=== PATIENT | male | born 1950 | race Caucasian/White ===

== ENCOUNTER 2018-03-14 02:25 | Outpatient (CLI) | payer MEDICARE, MEDICAID, SELFPAY ==
[2018-03-14 11:37] LABS: Cholesterol 242 mg/dL (50-200); HDL Cholesterol 81 mg/dL (40-60); LDL CHOLESTEROL 144 mg/dL (<100); Triglyceride 58 mg/dL (30-150)
[2018-03-15 09:21] LABS: PSA, Screening 1.8 ng/ml (0-4.5)
== END 2018-03-14 02:45 ==
PROVIDERS: PCP Emergency Medicine; Visit Provider Emergency Medicine
DX: Z12.5 Encounter for screening for malignant neoplasm of prostate (principal); E78.5 Hyperlipidemia, unspecified
CPT/HCPCS: 36415; 80061; 83721; 84153

== ENCOUNTER 2018-03-30 12:06 | Emergency (ER) | payer MEDICARE, SELFPAY ==
[2018-03-30 12:08] VITALS: BP 135/73; PULSE 76; RESP 16; TEMP 36.2; O2SAT 96
--- NOTE | 2018-03-30 12:51 | DI.RAD_ITS ---
SYMPTOMS/DIAGNOSIS: COUGH, LT LOWER CRACKLES CHEST: Frontal and lateral views. Comparison 07/08/17. The heart size and pulmonary vasculature are within normal limits. There is linear atelectasis or scarring in the left lung base. No consolidating infiltrates, effusions or pneumothoraces are identified. Degenerative changes are seen in the spine. IMPRESSION: Left basilar atelectasis or scarring.
--- NOTE | 2018-03-30 12:59 | W.ED.GENAD ---
Discharge Plan Disposition Patient Disposition: HOME Condition: Good Discharge Details Chief Complaint: RespSymp Clinical Impression: Left lower lobe pneumonia Primary Care Provider: Butch Caldwell ED Provider: Seferino Sun Home Meds and New Rx's Prescriptions: New azithromycin 250 mg tablet See Label Instructions .ROUTE .COMPLEX Qty: 6 RF: 0 No Action sildenafil [Viagra] 100 mg tablet 100 mg PO ONCE PRNRF: 0 Discharge Instructions Instructions: Pneumonia (ED) Additional Instructions: Please take medications as directed. If you notice any worsening of your symptoms, or any new symptoms such as vomiting, diarrhea, fever, chills, shortness of breath, chest pain, numbness, weakness, or fainting , please return immediately to the emergency department for reevaluation. Please follow up with your primary care provider as soon as possible for reassessment and reevaluation. As always, it was a pleasure participating in your medical care today. Referrals: Butch Caldwell, [Primary Care Provider] - Medical Decision Making This is a pleasant 67-year-old male with no significant past medical history who presents today for evaluation of cough for the last 3 days. It is productive with some white sputum. He denies shortness of breath or chest pain. He has no red flags or significant risk factors for cardiac disease at this time. No family history of cardiac disease. Physical exam demonstrates minimal crackles in the left lower lung ruth. No signs of hypoxemia clinically. Chest x-ray shows questionable left lower lobe infiltrate. With no significant vital sign abnormalities, no signs of respiratory distress I think that outpatient antibiotics are certainly reasonable. Patient will be discharged home with azithromycin. I have extensively reviewed the treatment plan and discharge instructions with the patient. I have addressed all patient concerns at this time. The patient was made aware of what symptoms to monitor for that would warrant a return to the emergency department. Discussed the plan with the patient, they demonstrate verbal understanding and agreement with our assessment and plan at this time. HPI General Date/Time Provider Initiated Documentation: 03/30/18 12:08. HPI Narrative: This is a 67-year-old male with no significant past medical history, no previous cardiac disease, no smoking history, no history of diabetes, hypertension, high cholesterol. He presents today for evaluation of cough. He states that for the last 3 days he has had occasional sweats at night, mild sore throat, generalized aches, and a cough that is productive with white sputum. He denies any chest pain, pleuritic chest pain, arm neck or shoulder pain. He does admit to a sick contact at home which is his . He has no other complaints at this time. No other modifying factors. No previous surgeries. No pertinent family history. No history of IV or illicit drug use or tobacco use. Related Data Home Medications Medication Instructions Recorded Confirmed sildenafil 100 mg tablet 100 mg PO ONCE PRN 03/06/18 03/30/18 azithromycin See Label Instructions .ROUTE 03/30/18 .COMPLEX #6 tab Previous Rx's Medication Instructions Recorded azithromycin See Label Instructions .ROUTE 03/30/18 .COMPLEX #6 tab Allergies Allergy/AdvReac Type Severity Reaction Status Date / Time No Known Allergies Allergy Unverified 03/30/18 12:10 General Stated Complaint: RespSymp BRITTON: 4 Review of Systems Review of Systems All systems reviewed & are unremarkable except as noted in HPI and below PFSH Family History Mother No problems noted. Father No problems noted. Sister No problems noted. Sister No problems noted. Maternal Grandfather No problems noted. Paternal Grandfather Cancer Maternal Grandmother No problems noted. Paternal Grandmother Cancer Daughter No problems noted. Social History household members: none pets and animals: Yes pets and animals: cat(s) frequency: does not exercise Smoking/Tobacco Use Status: Never alcohol intake: current alcohol intake frequency: a few times a week substance use type: does not use esther/uatsdin: No preference special esther needs: No Surgical History Repair of inguinal hernia Repair of umbilical hernia bicep tendon repair Exam Narrative Exam Narrative: 1.Const: Well-nourished, Well-developed, appearing stated age 2.Eyes: PERRL, no conjunctival injection, and symmetrical lids. 3.ENT: Atraumatic external nose and ears. Moist MM. Neck: Symmetric, trachea midline, No thyromegaly. 4.CVS: +S1/S2, No murmurs or gallops. Peripheral pulses 2+ and equal in all extremities. Brisk capillary refill in all extremities. 5.RESP: Unlabored respiratory effort. Clear to auscultation bilaterally. No wheezes or rhonchi however the patient does demonstrate mild crackles in his left lower lung ruth. No signs of acute respiratory distress 6.GI: Soft, Nontender/Nondistended, No hepatosplenomegaly. No guarding or rebound. 7.MSK: Normocephalic/Atraumatic, Extremities w/o deformity or ttp No cyanosis or clubbing, Normal movement of all extremities 8.Skin: Warm, Dry. No rashes or lesions. 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 Sensation grossly intact, no focal neurologic deficits. 10.Psych: (AAO) x3. Appropriate mood and affect Course Vital Signs Temperature 36.2 C L 03/30/18 12:08 Pulse 76 03/30/18 12:08 Respiratory Rate 16 03/30/18 12:08 Blood Pressure 135/73 03/30/18 12:08 Pulse Oximetry 96 03/30/18 12:08 Temperature 36.2 C L 03/30/18 12:08 Temperature Source Temporal Artery Scan 03/30/18 12:08 Pulse 76 03/30/18 12:08 Respiratory Rate 16 03/30/18 12:08 Blood Pressure 135/73 03/30/18 12:08 Pulse Oximetry 96 03/30/18 12:08 Oxygen Delivery Method Room Air 03/30/18 12:08 Oxygen Flow Rate 0 03/30/18 12:08 Pain Level 0 03/30/18 12:08
[2018-03-30 13:01] VITALS: BP 143/99; PULSE 79; RESP 18; TEMP 36.8; O2SAT 96
--- NOTE | 2018-03-30 13:02 | ED.GENADUL_ITS ---
Discharge Plan Disposition Patient Disposition: HOME Condition: Good Discharge Details Chief Complaint: RespSymp Clinical Impression: Left lower lobe pneumonia Primary Care Provider: Butch Caldwell ED Provider: Seferino Sun Home Meds and New Rx's Prescriptions: New azithromycin 250 mg tablet See Label Instructions .ROUTE .COMPLEX Qty: 6 RF: 0 No Action sildenafil [Viagra] 100 mg tablet 100 mg PO ONCE PRNRF: 0 Discharge Instructions Instructions: Pneumonia (ED) Additional Instructions: Please take medications as directed. If you notice any worsening of your symptoms, or any new symptoms such as vomiting, diarrhea, fever, chills, shortness of breath, chest pain, numbness, weakness, or fainting , please return immediately to the emergency department for reevaluation. Please follow up with your primary care provider as soon as possible for reassessment and reevaluation. As always, it was a pleasure participating in your medical care today. Referrals: Butch Caldwell, [Primary Care Provider] - Medical Decision Making This is a pleasant 67-year-old male with no significant past medical history who presents today for evaluation of cough for the last 3 days. It is productive with some white sputum. He denies shortness of breath or chest pain. He has no red flags or significant risk factors for cardiac disease at this time. No family history of cardiac disease. Physical exam demonstrates minimal crackles in the left lower lung ruth. No signs of hypoxemia clinically. Chest x-ray shows questionable left lower lobe infiltrate. With no significant vital sign abnormalities, no signs of respiratory distress I think that outpatient antibiotics are certainly reasonable. Patient will be discharged home with azithromycin. I have extensively reviewed the treatment plan and discharge instructions with the patient. I have addressed all patient concerns at this time. The patient was made aware of what symptoms to monitor for that would warrant a return to the emergency department. Discussed the plan with the patient, they demonstrate verbal understanding and agreement with our assessment and plan at this time. HPI General Date/Time Provider Initiated Documentation: 03/30/18 12:08 . HPI Narrative: This is a 67-year-old male with no significant past medical history, no previous cardiac disease, no smoking history, no history of diabetes, hypertension, high cholesterol. He presents today for evaluation of cough. He states that for the last 3 days he has had occasional sweats at night , mild sore throat, generalized aches, and a cough that is productive with white sputum. He denies any chest pain, pleuritic chest pain, arm neck or shoulder pain. He does admit to a sick contact at home which is his . He has no other complaints at this time. No other modifying factors. No previous surgeries. No pertinent family history. No history of IV or illicit drug use or tobacco use. Related Data Home Medications Medication Instructions Recorded Confirmed sildenafil 100 mg tablet 100 mg PO ONCE PRN 03/06/18 03/30/18 azithromycin See Label Instructions .ROUTE 03/30/18 .COMPLEX #6 tab Previous Rx's Medication Instructions Recorded azithromycin See Label Instructions .ROUTE 03/30/18 .COMPLEX #6 tab Allergies Allergy/AdvReac Type Severity Reaction Status Date / Time No Known Allergies Allergy Unverified 03/30/18 12:10 General Stated Complaint: RespSymp BRITTON: 4 Review of Systems Review of Systems All systems reviewed & are unremarkable except as noted in HPI and below PFSH Family History Mother No problems noted. Father No problems noted. Sister No problems noted. Sister No problems noted. Maternal Grandfather No problems noted. Paternal Grandfather Cancer Maternal Grandmother No problems noted. Paternal Grandmother Cancer Daughter No problems noted. Social History household members: none pets and animals: Yes pets and animals: cat(s) frequency: does not exercise Smoking/Tobacco Use Status: Never alcohol intake: current alcohol intake frequency: a few times a week substance use type: does not use esther/religious: No preference special esther needs: No Surgical History Repair of inguinal hernia Repair of umbilical hernia bicep tendon repair Exam Narrative Exam Narrative: 1.Const: Well-nourished, Well-developed, appearing stated age 2.Eyes: PERRL, no conjunctival injection, and symmetrical lids. 3.ENT: Atraumatic external nose and ears. Moist MM. Neck: Symmetric, trachea midline, No thyromegaly. 4.CVS: +S1/S2, No murmurs or gallops. Peripheral pulses 2+ and equal in all extremities. Brisk capillary refill in all extremities. 5.RESP: Unlabored respiratory effort. Clear to auscultation bilaterally. No wheezes or rhonchi however the patient does demonstrate mild crackles in his left lower lung ruth. No signs of acute respiratory distress 6.GI: Soft, Nontender/Nondistended, No hepatosplenomegaly. No guarding or rebound. 7.MSK: Normocephalic/Atraumatic, Extremities w/o deformity or ttp No cyanosis or clubbing, Normal movement of all extremities 8.Skin: Warm, Dry. No rashes or lesions. 9.Neuro: mill laborer II-XII grossly intact. Sensation grossly intact, no focal neurologic deficits. 10.Psych: (AAO) x3. Appropriate mood and affect Course Vital Signs Temperature 36.2 C L 03/30/18 12:08 Pulse 76 03/30/18 12:08 Respiratory Rate 16 03/30/18 12:08 Blood Pressure 135/73 03/30/18 12:08 Pulse Oximetry 96 03/30/18 12:08 Temperature 36.2 C L 03/30/18 12:08 Temperature Source Temporal Artery Scan 03/30/18 12:08 Pulse 76 03/30/18 12:08 Respiratory Rate 16 03/30/18 12:08 Blood Pressure 135/73 03/30/18 12:08 Pulse Oximetry 96 03/30/18 12:08 Oxygen Delivery Method Room Air 03/30/18 12:08 Oxygen Flow Rate 0 03/30/18 12:08 Pain Level 0 03/30/18 12:08
== END 2018-03-30 13:02 | disposition home or self-care (01) ==
LOC: ER 13:06
PROVIDERS: Emergency Provider Student in an Organized Health Care Education/Training Program; PCP Emergency Medicine
DX: J18.9 Pneumonia, unspecified organism (principal)
CPT/HCPCS: 99283; 71046

== ENCOUNTER 2018-04-05 10:34 | Outpatient (CLI) | payer MEDICARE, SELFPAY ==
--- NOTE | 2018-04-05 10:28 | DI.RAD_ITS ---
SYMPTOM/DIAGNOSIS: RT KNEE PAIN RIGHT KNEE: Three views. Comparison is made with 02/27/16. There is moderate narrowing of the medial femoral tibial joint space and mild periarticular spurring. Small osteophytes are seen in the lateral femoral tibial joint space. The bones are intact and normally mineralized. The soft tissues are unremarkable. 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
== END 2018-04-05 10:54 ==
PROVIDERS: PCP Emergency Medicine; Referring Provider Emergency Medicine; Visit Provider Student in an Organized Health Care Education/Training Program
DX: M25.561 Pain in right knee (principal); M17.11 Unilateral primary osteoarthritis, right knee; M72.0 Palmar fascial fibromatosis [Dupuytren]
CPT/HCPCS: 20610; 73562; 99203; 99214; J1040

== ENCOUNTER 2018-07-31 14:59 | Outpatient (CLI) | payer MEDICARE, SELFPAY ==
--- NOTE | 2018-07-31 15:13 | DI.RAD_ITS ---
SYMPTOM/DIAGNOSIS: LT KNEE PAIN LEFT KNEE: There are no prior comparison exams. There is moderate narrowing of the medial femoral tibial joint space and mild gene-articular spurring. The patellofemoral joint space is well maintained. IMPRESSION: Mild to moderate degenerative changes.
== END 2018-07-31 15:19 ==
PROVIDERS: PCP Emergency Medicine; Referring Provider Emergency Medicine; Visit Provider Student in an Organized Health Care Education/Training Program
DX: M17.11 Unilateral primary osteoarthritis, right knee (principal); M17.12 Unilateral primary osteoarthritis, left knee; M25.561 Pain in right knee; M25.562 Pain in left knee
CPT/HCPCS: 20610; 73562; 99212; 99213; J1040

== ENCOUNTER → 2018-08-16 08:02 | Outpatient (BNVA) | payer MEDICARE, SELFPAY | PROVIDERS: PCP Emergency Medicine; Referring Provider Emergency Medicine; Visit Provider Student in an Organized Health Care Education/Training Program | DX: M17.12 Unilateral primary osteoarthritis, left knee (principal) | CPT/HCPCS: 20610; 99213; J1040 ==

== ENCOUNTER 2019-08-10 13:21 | Emergency (ER) | payer OTHER, MEDICAID, SELFPAY ==
[2019-08-10 13:25] VITALS: BP 176/85; PULSE 83; RESP 16; TEMP 36.6; O2SAT 97
--- NOTE | 2019-08-10 13:47 | W.ED.GENAD ---
Discharge Plan Disposition Patient Disposition: HOME Condition: Improving Discharge Details Chief Complaint: Laceration Clinical Impression: Laceration of face Primary Care Provider: Butch Caldwell ED Provider: Matt Waters Discharge Instructions Instructions: Facial Laceration (ED) Additional Instructions: Return in 7 to 10 days time for removal of sutures. Return sooner if develop a fever, discharge from the wound, or any other acute concerns. May apply ice to area to reduce discomfort. Tylenol if needed for pain. Medical Decision Making 68-year-old male was struck by a piece of ice in his right upper lip at home. He was not pushed to the ground, did not injure his teeth, and has otherwise been well. His tetanus status is up-to-date. Patient was consented, anesthetized, irrigated, examined in a bloodless field without evidence of foreign body. Mustache hairs were slightly trimmed and I closed the wound with 3 interrupted Prolene sutures for the ease of identification at the time of removal. He understands anticipated course of resolution, return indications, and is appropriate to discharge to home at this time. HPI General Mode of arrival: ambulatory. Date/Time Provider Initiated Documentation: 08/10/19 13:24. Limitations to Documentation: no limitations. Information obtained by: patient. History of Present Illness 68 year old M presents to the emergency department with the chief complaint of Right lip laceration after struck by ice, Quality is described as dull, and is localized to the face, mouth and right. Patient reports no radiation. Patient started experiencing this minute(s) and it has been constant. No relieving factors improve symptom(s), No exacerbating factors reported . Patient notes denies headaches and syncope. Patient did receive the following treatments prior to arrival, none Related Data Allergies Allergy/AdvReac Type Severity Reaction Status Date / Time No Known Allergies Allergy Unverified 08/10/19 13:28 General Stated Complaint: Laceration BRITTON: 4 Review of Systems Narrative: Tetanus is up to date. No loss of consciousness, denies other injury, no loose teeth. [facility] Surgical History (Updated 02/21/19 @ 08:13 by Olu Gottlieb) bicep tendon repair x 2 Repair of inguinal hernia x 2 age 14 Repair of umbilical hernia Family History Mother No problems noted. Father , AGE 85 No problems noted. Sister No problems noted. Sister No problems noted. Maternal Grandfather , AGE 90 No problems noted. Paternal Grandfather , AGE 75 Cancer Maternal Grandmother , AGE 85 No problems noted. Paternal Grandmother , AGE 75 Cancer Daughter , AGE 27 No problems noted. Social History Smoking/Tobacco Use Status: Never Alcohol Intake: current Alcohol Intake frequency: a few times a week Drug use: Never Substance use type: does not use Household members: none Pets and animals: Yes Pets and animals: cat(s) What type of physical activity do you participate in: none Frequency: does not exercise Kristen/Evangelical: No preference Special kristen needs: No Do you feel safe in your relationship?: Yes Exam Narrative Exam Narrative: GEN: awake, alert, oriented 3. Pleasant, well groomed, interactive. HEAD: Normocephalic, atraumatic ENT: Mucous membranes moist, oropharynx unremarkable, the right upper lip has an approximately 1.5 cm laceration through the depth of the dermis, above the vermilion border, within the patient's mustache. External ear exam unremarkable EYES: PERRL, EOMI NECK: Full ROM, no KAVITHA, no menigismus CHEST/RESP: Nontender EXT: Full ROM, no edema, no rash Neuro: Grossly normal neurologic exam, conversant, interactive. Psych: Speech fluent, thoughts congruent, affect normal Course Vital Signs Vital signs: Vital Signs Temperature 36.6 C 08/10/19 13:25 Pulse 83 08/10/19 13:25 Respiratory Rate 16 08/10/19 13:25 Blood Pressure 176/85 H 08/10/19 13:25 Pulse Oximetry 97 08/10/19 13:25 Temperature 36.6 C 08/10/19 13:25 Temperature Source Skin 08/10/19 13:25 Pulse 83 08/10/19 13:25 Respiratory Rate 16 08/10/19 13:25 Blood Pressure 176/85 H 08/10/19 13:25 Blood Pressure Position Sitting 08/10/19 13:25 Pulse Oximetry 97 08/10/19 13:25 Oxygen Delivery Method Room Air 08/10/19 13:25 Oxygen Flow Rate 0 08/10/19 13:25 Pain Level 3 08/10/19 13:29 Procedures Laceration Laceration 1: Site: lip Side (If applicable): right Size (cm): 1.5 Description: linear Depth: simple, single layer Local Anesthetic: Lidocaine 1% Amount of anesthesia used (mL): 2 Pre-repair: wound explored, irrigated extensively and deep structures intact Skin layer closed with: other (Prolene) Size (cm): 4-0 Number of sutures: 3 Technique: simple, interrupted
== END 2019-08-10 14:13 | disposition home or self-care (01) ==
PROVIDERS: Emergency Provider Emergency Medicine; PCP Emergency Medicine
DX: S01.511A Laceration without foreign body of lip, initial encounter (principal); W20.8XXA Other cause of strike by thrown, projected or falling object, initial encounter
CPT/HCPCS: 12011

== ENCOUNTER 2019-08-18 08:16 | Emergency (ER) | payer MEDICARE, SELFPAY ==
[2019-08-18 08:20] VITALS: BP 150/88; PULSE 68; RESP 17; TEMP 36.4; O2SAT 96
--- NOTE | 2019-08-18 08:28 | ED.GENADUL_ITS ---
Discharge Plan Disposition Patient Disposition: HOME Condition: Stable Discharge Details Chief Complaint: SutureRem Clinical Impression: Encounter for removal of sutures Primary Care Provider: Butch Caldwell ED Provider: Giselle Arevalo Home Meds and New Rx's Prescriptions: No Action No Known Home Meds RF: 0 Discharge Instructions Instructions: Stitches Removal (ED) Additional Instructions: Wash area gently with soap and water once or twice daily. Apply topical antibiotic ointment to the wound for the next week. For the next 6 months use caution in applying sunscreen with sun exposure to minimize scarring. Observe for any sign of infection. Return for any worsening, concerns if needed sooner Medical Decision Making 68-year-old very pleasant patient presents 1 week after her upper lip laceration after being struck with ice which fell. Patient has [address] and upper lip. Presents for suture removal. 3 sutures remained with 11 blade without difficulty. No sign of complication. Wound edges well approximated, patient tolerated procedure without difficulty. Counseled regarding appropriate care and management, scar prevention and signs of infection. The patient was stable and requested discharge. Prior to discharge, my usual and customary return precautions were reviewed with the patient - this included follow-up instructions and reasons to return to the Emergency Department if conditions worsens, does not improve as expected, or other new concerns arise. HPI General Date/Time Provider Initiated Documentation: 08/18/19 08:17 . HPI Narrative: Pleasant 68-year-old gentleman presenting for suture removal. Sutures placed in the right upper lip 7 days ago. Patient reports ice fell and struck him in the upper lip when cleaning his roof. Patient denies any concerns or complaints at this time. [address] in the upper lip. No drainage or concerns of infection. No other concerns or complaints at this time. Related Data Home Medications Medication Instructions Recorded Confirmed Unknown [No Known Home Meds] 08/18/19 08/18/19 Allergies Allergy/AdvReac Type Severity Reaction Status Date / Time No Known Allergies Allergy Unverified 08/18/19 08:25 General Stated Complaint: SutureRem BRITTON: 5 Review of Systems Narrative: NEUROLOGIC: Denies headaches, Denies focal weakness. Denies numbness. All systems reviewed & are unremarkable except as noted in HPI and below Constitutional Constitutional: Denies headache(s) ENT Ears, Nose, Mouth, and Throat: Denies headache(s) Integumentary/Breasts Skin/Breast: Denies erythema Neurologic Neurologic: Denies headache(s) [facility] Surgical History (Updated 02/21/19 @ 08:13 by Olu Gottlieb) bicep tendon repair x 2 Repair of inguinal hernia x 2 age 14 Repair of umbilical hernia Social History Smoking/Tobacco Use Status: Never Alcohol Intake: current Alcohol Intake frequency: a few times a week Drug use: Never Substance use type: does not use Household members: none Pets and animals: Yes Pets and animals: cat(s) What type of physical activity do you participate in: none Frequency: does not exercise Kristen/Pentecostal: No preference Special kristen needs: No Do you feel safe in your relationship?: Yes Exam Narrative Exam Narrative: CONST: Healthy appearing patient, in no acute distress. Well hydrated. Alert and oriented. HENMT: Head nomocephalic, normal to inspection. Atraumatic. Hearing grossly normal. Upper lip, wound edges well approximated. Mild scabbing overlying. [address] in right upper lip area. No sign of infection SKIN: Normal. Dry. No rashes. NEURO: Alert and awake. Speech clear. PSYCH: Normal affect. Cooperative. Course Vital Signs Vital signs: Vital Signs Temperature 36.4 C 08/18/19 08:20 Pulse 68 08/18/19 08:20 Respiratory Rate 17 08/18/19 08:20 Blood Pressure 150/88 H 08/18/19 08:20 Pulse Oximetry 96 08/18/19 08:20 Temperature 36.4 C 08/18/19 08:20 Temperature Source Temporal Artery Scan 08/18/19 08:20 Pulse 68 08/18/19 08:20 Respiratory Rate 17 08/18/19 08:20 Respiratory Effort 08/18/19 08:23 Blood Pressure 150/88 H 08/18/19 08:20 Blood Pressure Position Sitting 08/18/19 08:20 Pulse Oximetry 96 08/18/19 08:20 Oxygen Delivery Method Room Air 08/18/19 08:20 Oxygen Flow Rate 0 08/18/19 08:20
== END 2019-08-18 08:30 | disposition home or self-care (01) ==
PROVIDERS: Emergency Provider Physician Assistant; PCP Emergency Medicine
DX: S01.511D Laceration without foreign body of lip, subsequent encounter (principal); W20.8XXD Other cause of strike by thrown, projected or falling object, subsequent encounter; Z48.02 Encounter for removal of sutures

== ENCOUNTER 2020-12-03 12:42 | Outpatient (REF) | payer OTHER, SELFPAY ==
[2020-12-03 13:19] LABS: Calculated LDL 167 mg/dL (<100); Cholesterol 270 mg/dL (<200); HDL Cholesterol 71 mg/dL (40-60); Triglyceride 160 mg/dL (<150)
[2020-12-03 21:58] LABS: PSA, Diagnostic 2.4 ng/mL (0.0-4.5)
== END 2020-12-03 12:43 | disposition home or self-care (01) ==
LOC: LBN 12:42
PROVIDERS: PCP Emergency Medicine; Visit Provider Emergency Medicine
DX: I10 Essential (primary) hypertension (principal); N40.0 Benign prostatic hyperplasia without lower urinary tract symptoms
CPT/HCPCS: 80061; 84153

== ENCOUNTER 2021-10-13 01:49 | Outpatient (CLI) | payer MEDICARE, SELFPAY ==
[2021-10-13 08:33] LABS: Calculated LDL 97 mg/dL (<100); Cholesterol 191 mg/dL (<200); HDL Cholesterol 81 mg/dL (40-60); Triglyceride 69 mg/dL (<150)
== END 2021-10-13 01:50 | disposition home or self-care (01) ==
LOC: LBO 01:49
PROVIDERS: Emergency Medicine; PCP Family Medicine; Visit Provider Family Medicine
DX: E78.5 Hyperlipidemia, unspecified (principal)
CPT/HCPCS: 36415; 80061

== ENCOUNTER → 2021-12-25 09:18 | Outpatient (BNVA) | payer MEDICARE, SELFPAY | PROVIDERS: PCP Nurse Practitioner Family; Referring Provider Emergency Medicine; Visit Provider Physical Therapy Assistant | DX: Z96.651 Presence of right artificial knee joint (principal); Z96.652 Presence of left artificial knee joint; Z12.11 Encounter for screening for malignant neoplasm of colon | CPT/HCPCS: 99213 ==

== ENCOUNTER 2022-01-04 09:03 | Day surgery (SDC) | payer MEDICARE, SELFPAY ==
--- NOTE | 2022-01-03 19:03 | W.ANESPRE ---
General Info Date of Service Date Performed: 01/04/22 Height: 5 ft 9 in Weight: 98.883 kg Body Mass Index (BMI): 32.1 Surgical Procedure: Operation Date: 01/04/22 10:35 Proposed Procedure Side Surgeon p Colonoscopy Jessica New MD Meds Allergies and Home Medications Allergies Allergy/AdvReac Type Severity Reaction Status Date / Time No Known Allergies Allergy Unverified 01/04/22 09:28 Home Medication Medication Instructions Recorded lisinopril 10 mg tablet 10 mg PO DAILY #90 tabs 12/15/21 bisacodyl 5 mg tablet,delayed 5 mg PO ONCE #4 tabs 12/25/21 release (Dulcolax (bisacodyl)) ibuprofen 200 mg tablet (Advil) 400 mg PO Q6H PRN 12/25/21 polyethylene glycol 3350 17 17 g PO ONCE #238 grams 12/25/21 gram/dose oral powder Current Visit Medications: Current Medications Generic Name Dose Route Start Last Admin Trade Name Freq PRN Reason Stop Dose Admin Ringer's Solution 1,000 mls @ 80 mls/hr 01/04/22 06:00 IV 01/31/22 23:59 INFUSION AUTUMN IV Miscellaneous Supplies 1 each 01/04/22 06:00 Iv Access IV 01/31/22 23:59 DIRECTED AUTUMN Sodium Chloride 0 ml 01/04/22 06:00 Normal Saline Flush 10 Ml Syr IV 01/31/22 23:59 PRN PRN Sodium Chloride 0 ml 01/04/22 06:00 Normal Saline 10 Ml Vial IJ 01/31/22 23:59 DIRECTED PRN Sterile Water 0 ml 01/04/22 06:00 Water,Injection,Sterile 10 Ml Vial IJ 01/31/22 23:59 DIRECTED PRN PFSH Active Problems Active Problems: Problem Status Onset Code Screening for colon cancer Z12.11 Medical History Medical History Arthritis of left knee Arthritis of right knee BPH (benign prostatic hyperplasia) DJD (degenerative joint disease) (01/14/15) right hip and knee Dupuytren's contracture of right hand Encounter for removal of sutures Hyperlipidemia Hypertension Laceration of face Pigmented nevus 02/05/14; PUNCH BX; NEG Retinal detachment Shingles pt. denies this Viral URI Surgical History Surgical History bicep tendon repair x 2 H/O umbilical hernia repair (01/08/14) History of total left knee replacement (TKR) History of total right knee replacement (TKR) Repair of inguinal hernia x 2 age 14 Repair of umbilical hernia Tobacco Smoking/Tobacco Use Status: Never Passive smoking exposure: Yes Second hand exposure: No Alcohol Alcohol Intake: current Alcohol intake frequency: 0-2 drinks per day Alcohol type: beer, wine and hard liquor Substance Use Substance use: Never Substance use type: does not use Vital Signs and Lab Results Lab Results Blood Type / Crossmatch: No Data to Display Complete Blood Count: No Data to Display Complete Metabolic Panel: No Data to Display Liver Function Panel: No Data to Display Coagulation Panel: No Data to Display Cardiac Panel: No Data to Display Arterial Blood Gas: No Data to Display Venous Blood Gas: No Data to Display Pancreas Panel: No Data to Display Thyroid Panel: No Data to Display Infectious Disease: No Data to Display Blood Cultures: No Data to Display Toxicology Panel: No Data to Display Anesthesia Assessment and Plan Anesthesia History Personal History: No History of Anesthesia Complications Family History: No Family History of Anesthesia Complications Exercise Tolerance Exercise Tolerance: Metabolic Equivalents>4 Cardiac & Pulmonary Exam Cardiac Exam: Normal S1/S2 Heart Sounds Pulmonary Exam: Clear Bilateral Breath Sounds Implantable Cardiac Device Does patient have a Pacemaker or an ICD?: No Airway Exam Known Difficult Airway: No Mallampati Class: 3 Mouth Opening: Narrow (< 3cm) Thyromental Distance: Greater than 3 cm Neck Range of Motion: Full ROM Neck Circumference: Thick Teeth Condition: Normal Dentition ASA Classification ASA Score: ASA 2 Emergency Case?: No NPO Status NPO Status: NPO Clears >2 hours, Solids >8 hours Anesthesia Plan Resuscitation Status: Full Code Anesthesia Technique: General Anesthesia Airway Planned: Natural Airway Monitors Used: Standard Monitors Preoperative Comments:: 71 yo male for colonoscopy. Sig PMHx: HTN, BPH, never smoker, occ EtOH.
--- NOTE | 2022-01-04 06:25 | W.COLOREPORT ---
Colonoscopy Report Date of procedure: 01/04/22 Pre-op diagnosis general: colon cancer screening Post-op diagnosis procedure note: other (polyps, internal hemorrhoidal skin tags) Procedure: Colonoscopy with polypectomy Surgeon: Jessica New Anesthesia Type: General:No Airway Estimated blood loss (mL): 2 Pathology: other (rectal polyps x3) Complications: None Disposition: same day Indications: The patient is here for Colonoscopy pre-op. Her last screening was in 2015 and was tubular adenomatous polyps. She has no family history of colon cancer. She has not had any bowel habit changes. -Discussed colonoscopy bowel prep as well as the procedure. Discussed possible complications of the procedure to include bleeding, pain, perforation, missed small lesion/polyp, sore throat, aspiration and adverse reaction to the medications. Questions were answered to patient?s satisfaction. No guarantees were implied or given.? Prep: Miralax/Dulcolax Procedure Start Time: 10:21 Procedure End Time: 10:38 Retraction Time: 8 minutes Findings: 3 small sessile polyps in the rectum, most likely benign Procedure Description: After informed consent was obtained the patient was taken to the procedure room and placed in a left decubitous position. Monitors were applied and a time out was done. The patients name, date of , procedure, allergies to medications and metal in their body was reviewed. The patient was then sedated. Once sedated and comfortable a rectal exam was done. External exam was normal. Internal exam revealed a normal sphincter tone and no palpable masses. The prostate felt smooth and slightly enlarged. The scope was then introduced and retro-flexed. No internal hemorrhoids, polyps or masses were identified on retro-flexion. There were a couple of hemorrhoidal skin tags noted. The scope was then advanced to the cecum without difficulty. The ileocecal vlave and appendiceal orifice were identified. The prep was good. The scope was then slowly retracted over 8 minutes back into the rectum. Polyps were removed with cold forceps in the rectum. There was no diverticulosis noted. The scope was removed and the patient was woken up and taken back to Same day surgery in stable condition. The patient tolerated the procedure well and there were no immediate complications.
--- NOTE | 2022-01-04 06:26 | W.PM.DSUDISC ---
Discharge Plan Disposition Patient Disposition: HOME Condition: Good Discharge Details Reason For Visit: colon cancer screening Attending Provider: Jessica New Primary Care Provider: Katherin Olivarez Home Meds and New Rx's Prescriptions: Continued ibuprofen [Advil] 200 mg tablet 400 mg PO Q6H PRN lisinopril 10 mg tablet 10 mg PO DAILY Qty: 90 3RF Discontinued bisacodyl [Dulcolax (bisacodyl)] 5 mg tablet,delayed release (DR/EC) 5 mg PO ONCE Qty: 4 0RF Rx Instructions: Take according to provider's instructions for colonoscopy prep. polyethylene glycol 3350 17 gram/dose powder 17 g PO ONCE Qty: 238 0RF Rx Instructions: To be taken as directed by prescriber's office for colonoscopy prep. Discharge Instructions Instructions: Colorectal Polyps (DC) Additional Instructions: Findings: 3 small, probably benign polyps Follow up: Will depend on final pathology Please call if you develop: fevers >101.5 Nausea or Vomiting Abdominal pain that is not transient Rectal bleeding that is more then a tbsp A hard abdomen and inability to pass gas DAY SURGERY UNIT POST ENDOSCOPY INSTRUCTIONS Instructions for everyone who is given Anesthesia: For your safety, please do the following for the next 24 Hours: a. Do not drive or operate dangerous equipment b. Do not drink alcohol beverages or use any recreational drugs for the first 24 hours or while taking pain medications. The medications in your body may have a reaction that can be dangerous. c. Do not make any important decisions or sign any important papers 1. Generally there are no restrictions on your activity after a day or so has gone by, but you may feel a bit fatigued for a few days. 2. After you arrive home you may have a light meal and return to a normal diet as you can tolerate it without feeling sick to your stomach. 3. After surgery, you may feel pain or discomfort. This should be only transient, but if it persists please contact your doctor. 4. If there are any questions regarding the findings of your procedure, please feel free to contact your doctor. 6. If you are unable to contact your doctor with a problem, contact the hospital at [phone]. 7. Continue all your regular medications unless directed otherwise. I understand the above instructions and have no questions. Signature of Patient or Responsible Adult Escort Date/Time Name of Responsible Adult Escort Signature of Nurse Date/Time Activity:: Activity as Tolerated Diet:: As Tolerated Discharge Orders Discharge Orders: Discharge Order (Routine); Ordered 01/04/22 Ordered By: Jessica New
[2022-01-04 09:31] VITALS: BP 151/85; PULSE 72; RESP 17; TEMP 36.3; O2SAT 95
[2022-01-04] MEDS: Lactated Ringers 1,000 ML 80 ML IV (09:47)
[2022-01-04 09:54] VITALS: BMI 32.1
--- NOTE | 2022-01-04 10:36 | BOWEL_PTH ---
PATIENT: Anthony Gore LOC: [facility] U#:[id number] AGE/SX: 71/M ROOM: RE01/04/[address]: Jessica New MD : 1950 BED: DIS: 01/04/2022 SPEC #: [id number] RECD: 01/04/22 11:27 STATUS: KISHORE RELuiza #: [id number] ELSA: 01/04/22 10:[address]: Jessica New DEPT: Surgical Specimen RECD BY: Cindi Contreras ENTERED: 01/04/22 11:28 SP TYPE: Bowel OTHR DR: HERMINIO Foster Tissues: 1 - BIOPSY BOWEL Procedures: GROSS AND MICRO LEVEL 4 Comments: [id number]
[2022-01-04 10:48] VITALS: BP 116/74; PULSE 70; RESP 16; TEMP 36.6; O2SAT 95
--- NOTE | 2022-01-04 10:56 | W.ANESPOSTOP ---
Postoperative Evaluation Date, Time and Location Date Performed: 01/04/22 Time Performed: 10:57 Patient Location: Day Surgery Unit Vital Signs Most Recent Imported Vital Signs: Most Recent Vital Signs Temp Pulse Resp BP Pulse Ox 36.6 C 70 16 116/74 95 01/04/22 10:48 01/04/22 10:48 01/04/22 10:48 01/04/22 10:48 01/04/22 10:48 Assessment Mental Status: Awake (Alert & Oriented to Patient Baseline) Airway and Respiratory Function: Patent airway with normal (patient baseline) respiratory exam Cardiovascular Function: Hemodynamically Stable Hydration Status: Adequately Hydrated Nausea & Vomiting: No Nausea or Vomiting Pain: Pt. Denies Any Pain Peripheral Nerve Block: Patient did not receive a nerve block
[2022-01-04 11:10] VITALS: BP 135/80; PULSE 64; RESP 18; TEMP 36.5; O2SAT 96
== END 2022-01-04 11:39 | disposition home or self-care (01) ==
PROVIDERS: PCP Nurse Practitioner Family; Visit Provider Surgery
PROC: 0DJD8ZZ Inspection of Lower Intestinal Tract, Via Natural or Artificial Opening Endoscopic (ICD-10-PCS; CPT 45378; principal; 2022-01-04 10:30)
DX: Z12.11 Encounter for screening for malignant neoplasm of colon (principal); K62.1 Rectal polyp; K64.8 Other hemorrhoids; Z86.010 Personal history of colon polyps
CPT/HCPCS: 45380; 88305

== ENCOUNTER 2022-10-01 13:48 | Outpatient (CLI) | payer MEDICARE, SELFPAY ==
--- NOTE | 2022-10-01 13:45 | RT.EKG_ITS ---
APPROVED REPORT Exam: Resting ECG Reason for Exam: epigastric/mid-chest pain Patient Location: O HR:64 bpm ECG Measurements Heart Rate 64 AXIS NE 170 P 54 QRSd 109 QRS -45 QT 422 T 34 QTc 436 Conclusion Sinus rhythm...normal P axis, V-rate 50- 99 LAD, consider left anterior fascicular block...axis(240,-40), S>R II III aVF
== END 2022-10-01 13:49 | disposition home or self-care (01) ==
LOC: DI.CM 13:49
PROVIDERS: PCP Nurse Practitioner Family; Visit Provider Nurse Practitioner Family
DX: R07.9 Chest pain, unspecified (principal)
CPT/HCPCS: 93010

== ENCOUNTER 2022-12-16 15:25 | Outpatient (REF) | payer MEDICARE, SELFPAY | END 2022-12-16 15:26 | disposition home or self-care (01) | LOC: LBN 15:25 | PROVIDERS: PCP Nurse Practitioner Family; Visit Provider Nurse Practitioner Family | DX: R21 Rash and other nonspecific skin eruption (principal); L08.0 Pyoderma | CPT/HCPCS: 87070; 87205 ==

== ENCOUNTER 2022-12-22 02:17 | Outpatient (CLI) | payer MEDICARE, SELFPAY ==
--- NOTE | 2022-12-22 07:30 | DI.US_ITS ---
Exam(s) US SOFT TISSUE HEAD OR NECK EXAM: US SOFT TISSUE HEAD OR NECK CLINICAL HISTORY: soft mobile swelling of right neck, ? lipoma,r22.1. TECHNIQUE: Ultrasound was performed using standard protocol. COMPARISON: No exams were available for comparison FINDINGS: Sonographic assessment utilizing grayscale and color Doppler imaging was performed and targeted to th e area of clinical concern. There is a 9 x 2.1 x 9 cm well-circumscribed anechoic collection in the right lateral neck correspond ing to the palpable abnormality. No abnormal blood flow is seen. IMPRESSION: 9 x 2.1 x 9 cm cyst in the soft tissues of the right lateral neck corresponding to the palpable abnor mality. Differential considerations include branchial cleft cysts, lymphangioma, abscess or seroma a fabby other etiologies. CT scan with contrast or MRI without and with contrast are recommended for fu rther evaluation. DATA REPOSITORY:
[2022-12-22 14:25] LABS: ALT 33 U/L (16-63); AST 21 U/L (15-37); Albumin 3.4 g/dL (3.4-5.0); Alkaline Phosphatase 64 U/L (46-116); Anion Gap 7.2 mmol/L (3-11); BUN 17 mg/dL (7-18); Bilirubin, Total 0.4 mg/dL (0.2-1.0); CO2 27.8 mmol/L (21.0-32.0); CREATININE 1.1 mg/dL (0.70-1.30); Calculated LDL 175 mg/dL (<100); Chloride 106 mmol/L (98-107); Cholesterol 274 mg/dL (<200); Estimated GFR 72.67 (mL/min/1.73m2); Glucose 102 mg/dL (74-106); HDL Cholesterol 75 mg/dL (40-60); Potassium 4.6 mmol/L (3.5-5.1); Sodium 141 mmol/L (136-145); TSH (W/Ref FT4) 2.86 uIU/mL (0.36-3.74); Total Protein 7.1 g/dL (6.4-8.2); Triglyceride 124 mg/dL (<150)
[2022-12-23 19:30] LABS: PSA, Screening 1.6 ng/mL (<=4.5)
== END 2022-12-22 02:37 ==
LOC: DI 02:17
PROVIDERS: PCP Nurse Practitioner Family; Visit Provider Nurse Practitioner Family
DX: R93.89 Abnormal findings on diagnostic imaging of other specified body structures (principal); Z00.00 Encounter for general adult medical examination without abnormal findings; Z12.5 Encounter for screening for malignant neoplasm of prostate
CPT/HCPCS: 36415; 76536; 80053; 80061; 84153; 87529; 84443

== ENCOUNTER → 2023-01-31 01:50 | Outpatient (CLI) | payer MEDICARE, SELFPAY ==
--- NOTE | 2023-01-31 08:00 | DI.CT_ITS ---
Exam(s) CT NECK W EXAM: CT NECK W CLINICAL HISTORY: soft mobile swelling of right neck,r22.1. TECHNIQUE: Imaging Protocol: Axial computed tomography images with coronal and sagittal reformatted images were created and reviewed CONTRAST MATERIAL: Intravenous: Omnipaque 350 Contrast volume:100 ml contrast COMPARISON: US US SOFT TISSUE HEAD OR NECK from 12/22/2022 FINDINGS: Parotids/submandibular/thyroid gland: Normal. Lymphadenopathy: There are scattered lymph nodes seen along the level one to level three all measuri ng less than 8 mm in short axis diameter which are physiologic in nature. Carotids/Jugular: No significant stenosis or dissection. Stable arteries patent.. Soft tissues: The floor the mouth is unremarkable. There is an elongated fluid collection seen in the right posterior neck, deep to the sternocleidomast oid muscle and posterior to the carotid and jugular veins. It measures 6.3 by 3.5 by 5.5 cm. There are no solid components. No additional masses or fluid collections are seen. The epiglottis and vocal cords are within normal limits. Lungs: Images through both lung apices are unremarkable. Bones: Degenerative changes of the cervical spine. Visualized portions of the brain and orbits: Unremarkable. Sinuses and mastoids: Minimal mucosal thickening at the floor of the maxillary sinuses. IMPRESSION: Fluid collection in the posterior right neck which could represent lymphangioma, seroma or less likel y branchial cleft cyst. No findings to suggest abscess. No adenopathy. RADIATION DOSE DELIVERED: 443.58mGy.cm Total DLP DATA REPOSITORY: All CT scans at this facility are submitted to the National Radiology Data Registry (NRDR) Dose Index Registry (DIR) with the [employer] ([employer]). RADIATION OPTIMIZATION: All CT scans at this facility use at least one of these dose optimization te chniques: automated exposure control; mA and/or kV adjustment per patient size (includes targeted exa ms where dose is matched to clinical indication); or iterative reconstruction.
[2023-01-31 13:11] LABS: CREATININE 1.1 mg/dL (0.70-1.30); Estimated GFR 72.22 (mL/min/1.73m2)
[2023-01-31] MEDS: Normal Saline - Diluent 50 ML VIAL IJ (13:37)
[2023-01-31] MEDS: Omnipaque 350 MG/ML 100 ML BTL IJ (13:38)
[2023-01-31] MEDS: Normal Saline Flush 10 ML SYR IVP (13:40)
== END ==
PROVIDERS: PCP Nurse Practitioner Family; Visit Provider Nurse Practitioner Family
DX: R22.1 Localized swelling, mass and lump, neck (principal)
CPT/HCPCS: 70491; 82565; J3490

== ENCOUNTER 2024-10-04 01:19 | Outpatient (CLI) | payer MEDICARE, SELFPAY ==
--- NOTE | 2024-10-04 09:00 | DI.US_ITS ---
Exam(s) US SOFT TISSUE HEAD OR NECK EXAM: US SOFT TISSUE HEAD OR NECK CLINICAL HISTORY: right sided neck mass, compare to previous US 12/17, R22.1. TECHNIQUE: Ultrasound was performed using standard protocol. COMPARISON: US US SOFT TISSUE HEAD OR NECK from 12/22/[address] NECK W from 01/31/2023 FINDINGS: Sonographic assessment utilizing grayscale and color Doppler imaging was performed and targeted to th e area of clinical concern. There is a large fluid collection again seen in the posterior lateral right neck. It measures 7.2 x 2.7 x 7.2 cm. This compares to 9.0 x 2.1 x 9.0 cm on the prior examination. IMPRESSION: Slight decrease in size of the right neck cystic lesion. DATA REPOSITORY:
== END 2024-10-04 01:39 ==
LOC: DI 01:19
PROVIDERS: PCP Nurse Practitioner Family; Visit Provider Registered Nurse Maternal Newborn
DX: R22.1 Localized swelling, mass and lump, neck (principal)
CPT/HCPCS: 76536

== ENCOUNTER 2024-10-30 16:32 | Outpatient (REF) | payer MEDICARE, SELFPAY ==
--- NOTE | 2024-10-30 13:28 | PAPNONF_PTH ---
PATIENT: Anthony Gore LOC: [facility] U#:[id number] AGE/SX: 73/M ROOM: RE10/30/[address]: Pepe Mcallister MD : 1950 BED: DIS: 10/30/2024 SPEC #: [id number] RECD: 10/30/24 18:22 STATUS: KISHORE RELuiza #: [id number] ELSA: 10/30/24 13:[address]: Pepe Mcallister DEPT: [facility] Cytology RECD BY: Sarina Sinha ENTERED: 10/30/24 18:23 SP TYPE: SPIKE SANTOS DR: HERMINIO Foster Tissues: 1 - BODY FLUID CYTO-FINE NEEDLE ASPIRATE-[facility] Procedures: BODY FLUID CYTO-FINE NEEDLE ASPIRATE-[facility] Comments: (REFRIGERATED)
== END 2024-10-30 16:33 | disposition home or self-care (01) ==
LOC: LBN 16:32
PROVIDERS: PCP Nurse Practitioner Family; Visit Provider Otolaryngology
DX: R59.0 Localized enlarged lymph nodes (principal)
CPT/HCPCS: 88104

== ENCOUNTER 2025-02-19 03:39 | Outpatient (CLI) | payer MEDICARE, SELFPAY ==
[2025-02-19 10:34] LABS: Anion Gap 5.6 mmol/L (3-11); BUN 20 mg/dL (7-18); CO2 29.4 mmol/L (21.0-32.0); Calcium 8.8 mg/dL (8.5-10.1); Calculated LDL 101 mg/dL (<100); Chloride 105 mmol/L (98-107); Cholesterol 203 mg/dL (<200); Estimated GFR 79.97 (mL/min/1.73m2); Glucose 96 mg/dL (74-106); HDL Cholesterol 96 mg/dL (>or=40); Potassium 4.6 mmol/L (3.5-5.1); Sodium 140 mmol/L (136-145); Triglyceride 33 mg/dL (<150)
[2025-02-19 11:11] LABS: Hemoglobin A1C 5.0 % (<5.7)
[2025-02-19 18:55] LABS: PSA, Screening 2.1 ng/mL (<=6.5)
== END 2025-02-19 03:40 | disposition home or self-care (01) ==
LOC: LOS 03:39
PROVIDERS: PCP Nurse Practitioner Family; Visit Provider Nurse Practitioner Family
DX: R73.01 Impaired fasting glucose (principal); Z00.00 Encounter for general adult medical examination without abnormal findings; I10 Essential (primary) hypertension; E78.5 Hyperlipidemia, unspecified; E66.9 Obesity, unspecified; Z12.5 Encounter for screening for malignant neoplasm of prostate
CPT/HCPCS: 36415; 80048; 80061; 84153; 83036